=== PATIENT | male | born 1960 | race Caucasian/White ===

== ENCOUNTER → 2019-05-24 08:45 | Outpatient (CLI) | payer MEDICARE, SELFPAY ==
--- NOTE | 2019-05-24 12:59 | NEURO ---
NCS and/or EMG Patient Report Ordering Doctor: Diana Diana DATE OF SERVICE: 05/24/19 Kt Rayo is a 59-year-old male presents for electrodiagnostic testing of the lower limbs. He reports pain in the left leg and feels his left foot becomes cold in the evenings. Electrodiagnostic findings: Peroneal motor nerve demonstrates normal distal latency, amplitude and conduction velocity bilaterally. Normal tibial motor response bilaterally. Normal peroneal and tibial F waves. H reflex borderline prolonged bilaterally. Sensory responses are within normal limits. On needle EMG, all muscles tested in the lower limb showed no evidence of denervation with normal motor unit action potentials. Electrodiagnostic impression: This is a normal electrodiagnostic study of the lower limbs. There is no electrodiagnostic evidence for peripheral neuropathy or lumbosacral radiculopathy. If there are any further questions, please do not hesitate to contact me.
== END ==
PROVIDERS: Family Provider Family Medicine; PCP Family Medicine; Referring Provider Nurse Practitioner Family; Visit Provider Nurse Practitioner Family
DX: R20.9 Unspecified disturbances of skin sensation (principal); R20.0 Anesthesia of skin; Z86.73 Personal history of transient ischemic attack (TIA), and cerebral infarction without residual deficits
CPT/HCPCS: 95886; 95912